=== PATIENT | female | born 1995 | race Caucasian/White ===

== ENCOUNTER 2017-01-02 17:55 | Emergency (ER) | payer SELFPAY ==
--- NOTE | 2017-01-02 19:46 | DIAGNOSTIC IMAGING REPORT ---
PROCEDURE: XR CHEST 2 VIEW INDICATION: RUQ ABD PAIN, initial encounter TECHNIQUE: PA and lateral view. COMPARISON: None. FINDINGS: Lungs are clear. Cardiovascular structures are normal. Bony thorax is unremarkable. IMPRESSION: 1. Negative chest.
--- NOTE | 2017-01-02 19:54 | DIAGNOSTIC IMAGING REPORT ---
PROCEDURE: US ABDOMEN ULTRASOUND-LIMITED INDICATION: RUQ PAIN TECHNIQUE: Rodriguez scale and color Doppler sonographic images of the abdomen were obtained. COMPARISON: None. FINDINGS: Normal gallbladder and CBD (0.9 mm). Negative Longoria's sign. Liver measures 17.8 cm with normal appearance. Normal pancreas as visualized. Aorta and IVC are patent. Normal hepatopetal flow. Normal right kidney measures 10.6 cm. IMPRESSION: 1. Negative right upper quadrant ultrasound
--- NOTE | 2017-01-02 21:28 | DIAGNOSTIC IMAGING REPORT ---
PROCEDURE: CTA THORAX WITH CONTRAST INDICATION: Right-sided chest pain, initial encounter TECHNIQUE: 64 ml of Isovue 370 was injected intravenously and axial images were obtained of the entire thorax with 3D sagittal and coronal MIP reconstructions. COMPARISON: Chest x-ray 01/02/2017 FINDINGS: No evidence of pulmonary emboli. Normal thoracic aorta without dissection or aneurysm. Lungs are clear. Mild bilateral hilar adenopathy. No effusion. Heart size is normal. Visualized upper abdomen is unremarkable. No suspicious osseous lesions. IMPRESSION: 1. No evidence of pulmonary emboli 2. Mild bilateral hilar adenopathy 3. Results discussed with Ochoa Nguyen.
--- NOTE | 2017-01-02 21:31 | ED NURSING NOTES ---
Clinical Report - Nurses [facility] [address] [place] [address] 01/02/2017 17:57 Patient: AMANDA AVALOS TRIAGE Triage time 18:Jan 02 2017. Acuity: LEVEL 3. Chief Complaint: ABDOMINAL PAIN, NAUSEA and DIARRHEA. Alert. No acute distress. --18:07 Leia Lazaro R.N. 18:02 01/02/17. BP: 145/90. HR: 115. RR: 20. O2 saturation: 100%. Temp: 98.2 F. Pain level now: 03/12. --18:07 Leia Lazaro R.N. Weight: 72.5 kg estimated. Height/Length: 67 inches Estimated. BMI: 25.1. --21:53 Keila Sheikh. Medications None. --18:03 Leia Lazaro R.N. Allergies No Known Drug Allergy. --18:03 Leia Lazaro R.N. History Arrived by private vehicle. Historian: patient. Accompanied by friend. Onset. (about 1 weeks ago). PAST MEDICAL HX: Immunizations: up-to-date. Last normal menstrual period now. No contraception. SOCIAL HX: Current every day heavy tobacco smoker (cigarette)- less than 1 pack per day. Occasional alcohol use. History of drug use: marijuana. Recently used drugs today. Recent travel in the last two (2) weeks. No infectious disease exposure. FALL RISK ASSESSMENT: Fall risk assessment completed. No fall risk identified. NUTRITIONAL RISK ASSESSMENT: The nutritional risk assessment revealed no deficiencies. FUNCTIONAL ASSESSMENT: Functional assessment: no impairments noted. LEARNING NEEDS ASSESSMENT: The learning needs assessment revealed no barriers. ABUSE ASSESSMENT: Abuse assessment: The patient was asked "Do you feel safe in your home?". SKIN INTEGRITY ASSESSMENT: Skin integrity risk assessment completed. No skin integrity risk identified. --18:07 Leia Lazaro R.N. ADDITIONAL SURGERIES: Dental Surgery. Tonsillectomy. --18:04 Leia Lazaro R.N. Interventions ID band on patient. To room. --18:07 Leia Lazaro R.N. PHYSICAL ASSESSMENT GENERAL / NEURO / PSYCH: Alert. Oriented X 4. Appears in pain. RESPIRATORY: Respirations not labored. CVS: Capillary refill less than 2 seconds. GI / : The patient has had nausea. Abdominal tenderness. SKIN: Skin is warm and dry. --18:07 Leia Lazaro R.N. NURSING PROGRESS NOTES Patient gowned. Head of bed elevated. Two patient identifiers checked. Call light placed in reach. Side rails up x 1. Bed placed in lowest position. Brakes of bed on. Patient ready for evaluation- chart flagged. --18:08 Leia Lazaro R.N. 19:01 01/02/2017 Site #1 started via IV in the left antecubital space with an 20g angiocath; one attempt. Blood drawn: rainbow set. Labeled in the presence of the patient and sent to the lab. Saline lock flushed with 10 mL saline. --19:11 Leia Lazaro R.N. 19:06 01/02/2017 Zofran (Ondansetron HCl) IVP 8 mg given over 2 minute(s) via site #1. Allergies verified and confirmed 5 rights. IV patency established. IV site checked: no pain, redness, or swelling. IV flushed thoroughly pre- and post-medication administration. --19:11 Leia Lazaro R.N. 19:06 01/02/2017 Dilaudid (HYDROmorphone HCl PF) IVP 1 mg given over 2 minute(s) via site #1. Allergies verified, confirmed 5 rights and sedative warning given to the patient. IV patency established. IV site checked: no pain, redness, or swelling. IV flushed thoroughly pre- and post-medication administration. --19:11 Leia Lazaro R.N. 19:12 01/02/2017 Started bag #1 1000 mL IV Fluids IV NS (Saline); bolus of 1000 mL over 1 hour(s) via site #1 --19:12 Leia Laazro R.N. 19:12 01/02/17. BP: 130/80. HR: 97. O2 saturation: 96%. Pain level now: 03/12. --19:13 Leia Lazaro R.N. Overall patient status is the same- she states feels the same. --20:17 Leia Lazaro R.N. 20:16 01/02/17. BP: 137/74. HR: 96. RR: 16. O2 saturation: 96%. Pain level now: 03/12. --20:17 Leia Lazaro R.N. Patient returned from CT. (:Jan 02 2017). --21:17 Leia Lazaro R.N. 21:51 01/02/2017 Site #1 removed upon discharge. Catheter intact. Pressure dressing applied. --21:51 Keila Sheikh 21:01/02/2017 IV Saline Lock Drip IV Discontinued: bag #1. Total amount infused: 0 mL. --21:51 Keila Sheikh 21:01/02/2017 IV Fluids IV NS Discontinued: bag #1 infused upon discharge. Total amount infused: 1000 mL. IV patency established. IV site checked: no pain, redness, or swelling. IV flushed thoroughly. --21:51 Keila Sheikh. DISPOSITION / DISCHARGE :01/02/17. Departure time: Jan 02 2017. Condition at departure: improved. The goals identified in the patient's plan of care were met. No learning barriers present. Discharge instructions provided and reviewed with the patient. Reviewed warnings (Patient verbalized awareness of warning s/sx listed in dc paperwork.). Reviewed medication(s) side effects, precautions, dosing and course information. Prescription(s) given to the patient (Zotaco, norco). Treatments reviewed. Reviewed referral to a primary care physician for followup. Patient verbalized understanding. Written instructions provided in Barbadian. The patient was discharged by the physician. She was discharged home and accompanied by merchant patroller. She left the Emergency Department ambulatory and via private vehicle. Assembler Tubing driving. FALL RISK ASSESSMENT: Fall risk assessment completed. No fall risk identified. --21:53 Keila Sheikh 21:51 01/02/17. BP: 123/69. HR: 97. RR: 15. O2 saturation: 98% on room air. Temp: 98.8 F (oral). Pain level now: 04/12. --21:53 Keila Sheikh. Locked/Released at 01/06/2017 11:19 by Leia Lazaro R.N.
--- NOTE | 2017-01-02 21:31 | ED CLINICAL REPORT ---
Clinical Report - Physicians/Mid Levels [facility] [address] [place] [address] 01/02/2017 17:57 [id number] Time Seen: 18:01 Jan 02 2017. Arrived- By private vehicle. Historian- patient. HISTORY OF PRESENT ILLNESS Chief Complaint: ABDOMINAL PAIN. At its maximum, severity described as moderate. When seen in the E.D., severity described as moderate. Modifying factors- worsened by movement and deep breaths. Not relieved by anything. It is described as "pain" and stabbing and it is described as located in the right flank and the right upper quadrant and radiating to the upper back. This started about 1 weeks ago; Patient says for about the last week she's been getting intermittent pain in her right upper abdomen. She says the pain seems to come and go. She is not sure if it gets worse with meals. She's been traveling by car around the [place] but denies any prolonged immobilization. No hemoptysis, sudden onset shortness of breath, or he'll lateral leg swelling. Her sister has a history of gallbladder problems with the first episode at 12 years old. No fevers or chills. The patient has had nausea and loss of appetite. No vomiting or diarrhea. The patient has had recent travel by car in the last two (2) weeks- [facility]. Similar symptoms previously: Recent medical care: Not recently seen/assessed. REVIEW OF SYSTEMS No black stools, hematemesis, difficulty with urination, pain with urination or urinary frequency. No bloody stools, fever, headache, difficulty breathing or cough. No skin rash, chills, ear pain, epistaxis or sore throat. The patient has had nasal congestion, anorexia and sinus pain but not had weight loss. She has had mild, pleuritic, well localized right-sided chest pain described as intermittent. No similar symptoms previously. All systems otherwise negative, except as recorded above. PAST HISTORY See nurses notes. No history of peptic ulcer. Has not had urinary calculi. No history of heart disease, lung disease or diabetes mellitus. SOCIAL HISTORY Smoker- current status unknown. Alcohol use. History of drug use. FAMILY HISTORY History of gall bladder problems in first-degree relative (sibling). ADDITIONAL NOTES The nursing notes have been reviewed. PHYSICAL EXAM Appearance: Alert. Oriented X3. No acute distress. Eyes: Pupils equal, round and reactive to light. Eyes normal inspection. ENT: Nose normal. Pharynx normal. Neck: Normal inspection. Neck supple. No JVD or lymphadenopathy. CVS: Tachycardia. Heart sounds normal. Rhythm normal. Respiratory: No respiratory distress. Breath sounds normal. Chest nontender. No decreased air movement. Abdomen: Soft. Severe tenderness in the right upper quadrant with guarding present. Positive Longoria's sign. No rebound tenderness. No organomegaly. No mass. No distention. Back: Normal inspection. No CVA tenderness. Skin: Skin warm and dry. Normal skin color. No rash. Normal skin turgor. Extremities: Extremities exhibit normal ROM. No lower extremity edema. Neuro: Oriented X 3. No motor deficit. No sensory deficit. LABS, X-RAYS, AND EKG Chest X-ray: Normal Chest X-Ray. Chest CT: Lungs normal. Great vessels normal. No infiltrate. Chest CT performed with contrast. The study was interpreted by the radiologist. Laboratory Tests: UA-Culture if indicated: (PREMA: 01/02/2017 18:00) ( MsgRcvd 01/02/2017 19:04) Final results Test Result Flag Units (Reference) URINE COLOR YELLOW URINE APPEARANCE CLOUDY URINE GLUCOSE NEGATIVE (NEGATIVE) URINE BILIRUBIN NEGATIVE (NEGATIVE) URINE KETONE NEGATIVE (NEGATIVE) URINE SPECIFIC GRAVITY 1.020 (1.010-1.030) URINE PH 7.5 (5.0-8.0) URINE PROTEIN NEGATIVE (NEGATIVE) URINE UROBILINOGEN 0.2 EU/dL (0.2-1.0) URINE NITRITE NEGATIVE (NEGATIVE) URINE BLOOD TRACE-INTACT (NEGATIVE) URINE LEUK ESTERASE NEGATIVE (NEGATIVE) URINE RBC 1-3 rbc/hpf (0-1) URINE WBC 1-3 wbc/hpf (0-1) URINE EPITHELIAL CELLS 1-3 EPI/hpf (0-5) URINE BACTERIA TRACE (<1+) (NONE SEEN) URINE COMMENT CULT NOT INDICATED 2+ AMORPHOUS URATESURINE CULTURES ARE SET-UP BASED ON THE FOLLOWING CRITERIA:POSITIVE NITRITEPOSITIVE LEUKOCYTE ESTERASEGREATER THAN 10 WHITE BLOOD CELLSMODERATE (2+) OR GREATER BACTERIA Urine: (PREMA: 01/02/2017 18:00) ( [facility] 01/02/2017 18:57) Final results Test Result Flag Units (Reference) URINE NEGATIVE CBC w Diff: (PREMA: 01/02/2017 19:10) ( [facility] 01/02/2017 19:32) Final results Test Result Flag Units (Reference) WHITE BLOOD COUNT 12.7 H K/uL (4.5-11.5) RED BLOOD COUNT 4.46 M/uL (4.00-5.20) HEMOGLOBIN 13.9 gm/dL (12.0-16.0) HEMATOCRIT 41.3 % (36.0-46.0) MEAN CELL VOLUME 93 fL (80-100) MEAN CORPUSCULAR HGB 31 pg (26-34) MEAN CORPUSCULAR HGB CONC 34 g/dL (31-37) RED CELL DISTRIBUTION WIDTH 12.7 % (11.6-14.8) PLATELET COUNT 281 K/uL (150-400) NEUTROPHIL % 80.2 H % (50-75) LYMPH % 11.6 L % (25-40) MONO % 7.4 % (3-14) EOSINOPHIL % 0.5 % (0-4) BASOPHIL % 0.3 % (0-2) [id number]: (PREMA: 01/02/2017 19:10) ( [facility] 01/02/2017 19:42) Final results Test Result Flag Units (Reference) D-DIMER QUANTITATIVE 2.25 H ug/mLFEU (0.27-0.52) The primary value of this quantitative assay relates toits negative predictive value (i.e. exclusion) of pulmonaryembolism/deep vein thrombosis/DIC.Elevated levels of d-dimer may also occur with:, age, cancer, inflammation, liver disease,post-op, infection, hematoma, coronary disease, peripheralarteriopathy, bleeding disorders and thrombolytic treatment.Results should be correlated with other clinical andradiological data.Testing Methodology: Latex Immunoassay CMP: (PREMA: 01/02/2017 19:10) ( MsgRcvd 01/02/2017 19:41) Final results Test Result Flag Units (Reference) GLUCOSE 96 mg/dL (70-110) BUN 10 mg/dL (7-18) CREATININE 0.7 mg/dL (0.6-1.3) Estimated GFR >60 mL/min Estimated GFR- >60 mL/min Note: Persistent reduction over 3 months in eGFR<60 mL/min/1.73 m2 defines CKD. Patients with eGFR values>=60 mL/min/1.73 m2 may also have CKD if evidence ofpersistent proteinuria. Additional information may be foundat www.[email or web address].org. SODIUM 141 mmol/L (136-145) POTASSIUM 3.7 mmol/L (3.5-5.1) CHLORIDE 102 mmol/L (98-107) CARBON DIOXIDE 27 mmol/L (21-32) CALCIUM 8.8 mg/dL (8.5-10.1) TOTAL PROTEIN 7.6 g/dL (6.4-8.2) ALBUMIN 3.7 g/dL (3.3-5.0) BILIRUBIN, TOTAL 0.5 mg/dL (0.0-1.0) ALKALINE PHOSPHATASE 67 U/L (46-116) AST (SGOT) 23 U/L (15-37) ALT (SGPT) 26 U/L (12-78) LIPASE 120 U/L (73-393) . PROGRESS AND PROCEDURES Course of Care: 18:27 01/02/17. Patient stable. Right upper quadrant abdominal pain underneath her rib cage. I think herpleuritic pain is from ultrasound, not the lung area. However, she is tachycardic and has been traveling so will add a d-dimer although her intermittent symptoms don't really suggest pulmonary embolism. We'll check labs and make comfortable and get a ultrasound of the Hepatobiliary area. 20:23 01/02/17. Unfortunately, her d-dimer is elevated. The remainder of her lab is normal. As cannot completely rule out PE will get a CTA. discussed with the patient. 21:29 01/02/17. CTA chest negative for PE. She is feeling much better. We'll discharge patient home. Discussed possibility of biliary colic and need for clear liquid diet in addition to her pain/nausea control at home. Follow up with her primary care provider in the next 72 hours for reevaluation. Sooner here if fever, worsening pain or vomiting. Disposition: Discharged in good and improved condition. CLINICAL IMPRESSION Acute right upper quadrant abdominal pain of unknown cause. Possible biliary colic. INSTRUCTIONS Rest at home for two days until better. Drink plenty of fluids. Take clear liquids only for the next 48 hours until better and re-evaluated. Advance diet as tolerated. Warnings: SEDATIVE MEDICATION: You were given sedative medication during your visit. Do not drive or operate dangerous machinery. CONTROLLED SUBSTANCE WARNINGS. GENERAL WARNINGS: Return or contact your physician immediately if your condition worsens or changes unexpectedly, if not improving as expected, or if other problems arise. SPECIFICALLY, return if you develop fever, the inability to keep fluids down, blood in diarrhea or fainting. Prescription Medications: Terrell 5 mg / 325 mg tablets: take 1 to 2 orally every 6 hours as needed for pain. Dispense five (5). No refill. Substitution is permissible. Zofran ODT 8 mg: take 1 orally every 8 hours as needed for nausea and vomiting. Dispense ten (10). No refill. Substitution is permissible. Follow-up: Follow up with your doctor in three days if not well. Understanding of the discharge instructions verbalized by patient. (Electronically signed by Ochoa Nguyen, 01/02/2017 23:13)
--- NOTE | 2017-01-02 21:31 | ED CLINICAL REPORT ---
Clinical Report - Physicians/Mid Levels [facility] [address] [place] [address] 01/02/2017 17:57 [id number] Time Seen: 18:01 Jan 02 2017. Arrived- By private vehicle. Historian- patient. HISTORY OF PRESENT ILLNESS Chief Complaint: ABDOMINAL PAIN. At its maximum, severity described as moderate. When seen in the E.D., severity described as moderate. Modifying factors- worsened by movement and deep breaths. Not relieved by anything. It is described as "pain" and stabbing and it is described as located in the right flank and the right upper quadrant and radiating to the upper back. This started about 1 weeks ago; Patient says for about the last week she's been getting intermittent pain in her right upper abdomen. She says the pain seems to come and go. She is not sure if it gets worse with meals. She's been traveling by car around the [place] but denies any prolonged immobilization. No hemoptysis, sudden onset shortness of breath, or he'll lateral leg swelling. Her sister has a history of gallbladder problems with the first episode at 12 years old. No fevers or chills. The patient has had nausea and loss of appetite. No vomiting or diarrhea. The patient has had recent travel by car in the last two (2) weeks- [facility]. Similar symptoms previously: Recent medical care: Not recently seen/assessed. REVIEW OF SYSTEMS No black stools, hematemesis, difficulty with urination, pain with urination or urinary frequency. No bloody stools, fever, headache, difficulty breathing or cough. No skin rash, chills, ear pain, epistaxis or sore throat. The patient has had nasal congestion, anorexia and sinus pain but not had weight loss. She has had mild, pleuritic, well localized right-sided chest pain described as intermittent. No similar symptoms previously. All systems otherwise negative, except as recorded above. PAST HISTORY See nurses notes. No history of peptic ulcer. Has not had urinary calculi. No history of heart disease, lung disease or diabetes mellitus. SOCIAL HISTORY Smoker- current status unknown. Alcohol use. History of drug use. FAMILY HISTORY History of gall bladder problems in first-degree relative (sibling). ADDITIONAL NOTES The nursing notes have been reviewed. PHYSICAL EXAM Appearance: Alert. Oriented X3. No acute distress. Eyes: Pupils equal, round and reactive to light. Eyes normal inspection. ENT: Nose normal. Pharynx normal. Neck: Normal inspection. Neck supple. No JVD or lymphadenopathy. CVS: Tachycardia. Heart sounds normal. Rhythm normal. Respiratory: No respiratory distress. Breath sounds normal. Chest nontender. No decreased air movement. Abdomen: Soft. Severe tenderness in the right upper quadrant with guarding present. Positive Longoria's sign. No rebound tenderness. No organomegaly. No mass. No distention. Back: Normal inspection. No CVA tenderness. Skin: Skin warm and dry. Normal skin color. No rash. Normal skin turgor. Extremities: Extremities exhibit normal ROM. No lower extremity edema. Neuro: Oriented X 3. No motor deficit. No sensory deficit. LABS, X-RAYS, AND EKG Chest X-ray: Normal Chest X-Ray. Chest CT: Lungs normal. Great vessels normal. No infiltrate. Chest CT performed with contrast. The study was interpreted by the radiologist. Laboratory Tests: UA-Culture if indicated: (PREMA: 01/02/2017 18:00) ( MsgRcvd 01/02/2017 19:04) Final results Test Result Flag Units (Reference) URINE COLOR YELLOW URINE APPEARANCE CLOUDY URINE GLUCOSE NEGATIVE (NEGATIVE) URINE BILIRUBIN NEGATIVE (NEGATIVE) URINE KETONE NEGATIVE (NEGATIVE) URINE SPECIFIC GRAVITY 1.020 (1.010-1.030) URINE PH 7.5 (5.0-8.0) URINE PROTEIN NEGATIVE (NEGATIVE) URINE UROBILINOGEN 0.2 EU/dL (0.2-1.0) URINE NITRITE NEGATIVE (NEGATIVE) URINE BLOOD TRACE-INTACT (NEGATIVE) URINE LEUK ESTERASE NEGATIVE (NEGATIVE) URINE RBC 1-3 rbc/hpf (0-1) URINE WBC 1-3 wbc/hpf (0-1) URINE EPITHELIAL CELLS 1-3 EPI/hpf (0-5) URINE BACTERIA TRACE (<1+) (NONE SEEN) URINE COMMENT CULT NOT INDICATED 2+ AMORPHOUS URATESURINE CULTURES ARE SET-UP BASED ON THE FOLLOWING CRITERIA:POSITIVE NITRITEPOSITIVE LEUKOCYTE ESTERASEGREATER THAN 10 WHITE BLOOD CELLSMODERATE (2+) OR GREATER BACTERIA Urine: (PREMA: 01/02/2017 18:00) ( [facility] [place] 18:57[place] Final results Test Result Flag Units (Reference) URINE NEGATIVE CBC w Diff: (PREMA: 01/02/2017 19:10) ( [facility] [place]/02/[place] 19:32) Final results Test Result Flag Units (Reference) WHITE BLOOD COUNT 12.7 H K/uL (4.5-11.5) RED BLOOD COUNT 4.46 M/uL (4.00-5.20) HEMOGLOBIN 13.9 gm/dL (12.0-16.0) HEMATOCRIT 41.3 % (36.0-46.0) MEAN CELL VOLUME 93 fL (80-100) MEAN CORPUSCULAR HGB 31 pg (26-34) MEAN CORPUSCULAR HGB CONC 34 g/dL (31-37) RED CELL DISTRIBUTION WIDTH 12.7 % (11.6-14.8) PLATELET COUNT 281 K/uL (150-400) NEUTROPHIL % 80.2 H % (50-75) LYMPH % 11.6 L % (25-40) MONO % 7.4 % (3-14) EOSINOPHIL % 0.5 % (0-4) BASOPHIL % 0.3 % (0-2) [id number]: (PREMA: 01/02/2017 19:10) ( [facility] [place]/02[place] 19:42) Final results Test Result Flag Units (Reference) D-DIMER QUANTITATIVE 2.25 H ug/mLFEU (0.27-0.52) The primary value of this quantitative assay relates toits negative predictive value (i.e. exclusion) of pulmonaryembolism/deep vein thrombosis/DIC.Elevated levels of d-dimer may also occur with:, age, cancer, inflammation, liver disease,post-op, infection, hematoma, coronary disease, peripheralarteriopathy, bleeding disorders and thrombolytic treatment.Results should be correlated with other clinical andradiological data.Testing Methodology: Latex Immunoassay CMP: (PREMA: 01/02/2017 19:10) ( MsgRcvd 01/02/2017 19:41) Final results Test Result Flag Units (Reference) GLUCOSE 96 mg/dL (70-110) BUN 10 mg/dL (7-18) CREATININE 0.7 mg/dL (0.6-1.3) Estimated GFR >60 mL/min Estimated GFR- >60 mL/min Note: Persistent reduction over 3 months in eGFR<60 mL/min/1.73 m2 defines CKD. Patients with eGFR values>=60 mL/min/1.73 m2 may also have CKD if evidence ofpersistent proteinuria. Additional information may be foundat www.kidney.org. SODIUM 141 mmol/L (136-145) POTASSIUM 3.7 mmol/L (3.5-5.1) CHLORIDE 102 mmol/L (98-107) CARBON DIOXIDE 27 mmol/L (21-32) CALCIUM 8.8 mg/dL (8.5-10.1) TOTAL PROTEIN 7.6 g/dL (6.4-8.2) ALBUMIN 3.7 g/dL (3.3-5.0) BILIRUBIN, TOTAL 0.5 mg/dL (0.0-1.0) ALKALINE PHOSPHATASE 67 U/L (46-116) AST (SGOT) 23 U/L (15-37) ALT (SGPT) 26 U/L (12-78) LIPASE 120 U/L (73-393) . PROGRESS AND PROCEDURES Course of Care: 18:27 01/02/17. Patient stable. Right upper quadrant abdominal pain underneath her rib cage. I think herpleuritic pain is from ultrasound, not the lung area. However, she is tachycardic and has been traveling so will add a d-dimer although her intermittent symptoms don't really suggest pulmonary embolism. We'll check labs and make comfortable and get a ultrasound of the Hepatobiliary area. 20:23 01/02/17. Unfortunately, her d-dimer is elevated. The remainder of her lab is normal. As cannot completely rule out PE will get a CTA. discussed with the patient. 21:29 01/02/17. CTA chest negative for PE. She is feeling much better. We'll discharge patient home. Discussed possibility of biliary colic and need for clear liquid diet in addition to her pain/nausea control at home. Follow up with her primary care provider in the next 72 hours for reevaluation. Sooner here if fever, worsening pain or vomiting. Disposition: Discharged in good and improved condition. CLINICAL IMPRESSION Acute right upper quadrant abdominal pain of unknown cause. Possible biliary colic. INSTRUCTIONS Rest at home for two days until better. Drink plenty of fluids. Take clear liquids only for the next 48 hours until better and re-evaluated. Advance diet as tolerated. Warnings: SEDATIVE MEDICATION: You were given sedative medication during your visit. Do not drive or operate dangerous machinery. CONTROLLED SUBSTANCE WARNINGS. GENERAL WARNINGS: Return or contact your physician immediately if your condition worsens or changes unexpectedly, if not improving as expected, or if other problems arise. SPECIFICALLY, return if you develop fever, the inability to keep fluids down, blood in diarrhea or fainting. Prescription Medications: [place] 5 mg / 325 mg tablets: take 1 to 2 orally every 6 hours as needed for pain. Dispense five (5). No refill. Substitution is permissible. Zofran ODT 8 mg: take 1 orally every 8 hours as needed for nausea and vomiting. Dispense ten (10). No refill. Substitution is permissible. Follow-up: Follow up with your doctor in three days if not well. Understanding of the discharge instructions verbalized by patient. (Electronically signed by Ochoa Nguyen, 01/02/2017 23:13)
--- NOTE | 2017-01-02 21:31 | ED ORDER SUMMARY ---
..... Patient: AMANDA AVALOS OrderSheet [facility] VisitID: [id number] [place] [address] 21y, F Registration Date/Time: 01/02/2017 ORDER SHEET Weight: 72.5 kg (estimated) Allergies: No Known Drug Allergy GENERAL ORDERS: Chest 2V Urgent (18:19 01/02/2017 JCoates) (18:31 MCampbell) US Abdomen Complete (No) Urgent (18:20 01/02/2017 JCoates) (18:24 JCoates) (Cancelled: Wrong Order18:24 JCoates) CBC w Diff Urgent (18:21 01/02/2017 JCoates) (Ack 18:43 RKaruga) (19:12 KKnebel R.N.) CMP Urgent (18:21 01/02/2017 JCoates) (Ack 18:43 RKaruga) (19:12 KKnebel R.N.) Lipase Urgent (18:21 01/02/2017 JCoates) (Ack 18:43 RKaruga) (19:12 KKnebel R.N.) Urine Urgent (18:21 01/02/2017 JCoates) (Ack 18:43 RKaruga) (19:12 KKnebel R.N.) UA-Culture if indicated Urgent (18:21 01/02/2017 JCoates) (Ack 18:43 RKaruga) (19:12 KKnebel R.N.) D-Dimer Urgent (18:21 01/02/2017 JCoates) (Ack 18:43 RKaruga) (19:12 KKnebel R.N.) US Abdomen Limited (No) Urgent (18:25 01/02/2017 JCoates) (Ack 18:43 RKaruga) (19:01 MCampbell) CTA Thorax w Cont (No) (N/A) Urgent (20:24 01/02/2017 JCoates) (Ack 20:29 AMcQuoid ER Tech1) (21:23 MCampbell) MEDICATION ORDERS: IV FLUIDS: IV NS : initial bolus 1000 mL (1000 mL/hr), then 1000 mL/hr for X1 (NOW) (18:20 01/02/2017 JCoates) (Ack 18:40 RCollier R.N.) (19:12 KKnebel R.N.) Zofran IV 8 mg (NOW) (18:21 01/02/2017 JCoates) (Ack 18:40 RCollier R.N.) (19:11 KKnebel R.N.) Dilaudid IV 1 mg (NOW) (18:21 01/02/2017 JCoates) (Ack 18:40 RCollier R.N.) (19:11 KKnebel R.N.) IV Saline Lock (18:21 01/02/2017 JCoates) (Ack 18:40 RCollier R.N.) (21:51 [facility]) ORDER SHEET NOTES: [Electronically signed by Ochoa Nguyen (23:13 01/02/2017)] [Electronically signed by Leia Lazaro R.N. (11:19 01/06/2017)] [Electronically locked/signed by Leia Lazaro R.N. (11:19 01/06/2017)]
--- NOTE | 2017-01-02 21:31 | ED ORDER SUMMARY ---
..... Patient: AMANDA AVALOS OrderSheet [facility] VisitID: [id number] [place] [address] 21y, F Registration Date/Time: 01/02/2017 ORDER SHEET Weight: 72.5 kg (estimated) Allergies: No Known Drug Allergy GENERAL ORDERS: Chest 2V Urgent (18:19 01/02/2017 JCoates) (18:31 MCampbell) US Abdomen Complete (No) Urgent (18:20 01/02/2017 JCoates) (18:24 JCoates) (Cancelled: Wrong Order18:24 JCoates) CBC w Diff Urgent (18:21 01/02/2017 JCoates) (Ack 18:43 RKaruga) (19:12 KKnebel R.N.) CMP Urgent (18:21 01/02/2017 JCoates) (Ack 18:43 RKaruga) (19:12 KKnebel R.N.) Lipase Urgent (18:21 01/02/2017 JCoates) (Ack 18:43 RKaruga) (19:12 KKnebel R.N.) Urine Urgent (18:21 01/02/2017 JCoates) (Ack 18:43 RKaruga) (19:12 KKnebel R.N.) UA-Culture if indicated Urgent (18:21 01/02/2017 JCoates) (Ack 18:43 RKaruga) (19:12 KKnebel R.N.) D-Dimer Urgent (18:21 01/02/2017 JCoates) (Ack 18:43 RKaruga) (19:12 KKnebel R.N.) US Abdomen Limited (No) Urgent (18:25 01/02/2017 JCoates) (Ack 18:43 RKaruga) (19:01 MCampbell) CTA Thorax w Cont (No) (N/A) Urgent (20:24 01/02/2017 JCoates) (Ack 20:29 AMcQuoid ER Tech1) (21:23 MCampbell) MEDICATION ORDERS: IV FLUIDS: IV NS : initial bolus 1000 mL (1000 mL/hr), then 1000 mL/hr for X1 (NOW) (18:20 01/02/2017 JCoates) (Ack 18:40 RCollier R.N.) (19:12 KKnebel R.N.) Zofran IV 8 mg (NOW) (18:21 01/02/2017 JCoates) (Ack 18:40 RCollier R.N.) (19:11 KKnebel R.N.) Dilaudid IV 1 mg (NOW) (18:21 01/02/2017 JCoates) (Ack 18:40 RCollier R.N.) (19:11 KKnebel R.N.) IV Saline Lock (18:21 01/02/2017 JCoates) (Ack 18:40 RCollier R.N.) (21:51 [facility]) ORDER SHEET NOTES: [Electronically signed by Ochoa Nguyen (23:13 01/02/2017)] [Electronically signed by Leia Lazaro R.N. (11:19 01/06/2017)] [Electronically locked/signed by Leia Lazaro R.N. (11:19 01/06/2017)]
--- NOTE | 2017-01-06 11:19 | ED MED RECONCILIATION SUMMARY ---
Patient: AMANDA AVALOS Medication Reconciliation Report [facility] VisitID: [id number] [address] [place] [address] 21y, F Registration Date/Time: 01/02/2017 Weight: 72.5 kg Height/Length: 67 in. BMI: 25.1 ALLERGIES: No Known Drug Allergy The patient's Home Medications are listed below: NONE. The source(s) of the original Home Medication information: Not obtained. The following Medications were given to the patient in the Emergency Department: Zofran [IVP] IVP 8 mg, administered: 01/02/2017 7:06:00 PM Dilaudid [IVP] IVP 1 mg, administered: 01/02/2017 7:06:00 PM IV NS IV Fluids bolus 1000 mL over 1 hour(s), administered: 01/02/2017 7:12:00 PM The following Medications were prescribed to the patient: [place] 5 mg / 325 mg tablets: take 1 to 2 orally every 6 hours as needed for pain. Dispense five (5). No refill. Substitution is permissible. -- Ochoa Nguyen Zofran ODT 8 mg: take 1 orally every 8 hours as needed for nausea and vomiting. Dispense ten (10). No refill. Substitution is permissible. -- Ochoa Nguyen
--- NOTE | 2017-01-06 11:19 | ED MED RECONCILIATION SUMMARY ---
Patient: AMANDA AVALOS Medication Reconciliation Report [facility] VisitID: [id number] [address] [place] [address] 21y, F Registration Date/Time: 01/02/2017 Weight: 72.5 kg Height/Length: 67 in. BMI: 25.1 ALLERGIES: No Known Drug Allergy The patient's Home Medications are listed below: NONE. The source(s) of the original Home Medication information: Not obtained. The following Medications were given to the patient in the Emergency Department: Zofran [IVP] IVP 8 mg, administered: 01/02/2017 7:06:00 PM Dilaudid [IVP] IVP 1 mg, administered: 01/02/2017 7:06:00 PM IV NS IV Fluids bolus 1000 mL over 1 hour(s), administered: 01/02/2017 7:12:00 PM The following Medications were prescribed to the patient: [place] 5 mg / 325 mg tablets: take 1 to 2 orally every 6 hours as needed for pain. Dispense five (5). No refill. Substitution is permissible. -- Ochoa Nguyen Zofran ODT 8 mg: take 1 orally every 8 hours as needed for nausea and vomiting. Dispense ten (10). No refill. Substitution is permissible. -- Ochoa Nguyen
--- NOTE | 2017-01-06 11:19 | ED MAR SUMMARY ---
..... Medication Administration Record [facility] [address] [place] [address] Patient: AMANDA AVALOS Visit ID: [id number] 21y, F Weight: 72.5 kg Height/Length: 67 in BMI: 25.1 ALLERGIES: No Known Drug Allergy Given 19:06 01/02/2017 Leia Lazaro R.N. Medication Administered: ZOFRAN [IVP] (ONDANSETRON HCL), Dose: 8 mg IVP over 2 minute(s), Site: #1 left AC. Medication Ordered: Zofran IV 8 mg (NOW). Given 19:06 01/02/2017 Leia Lazaro R.N. Medication Administered: DILAUDID [IVP] (HYDROMORPHONE HCL PF), Dose: 1 mg IVP over 2 minute(s), Site: #1 left AC. Medication Ordered: Dilaudid IV 1 mg (NOW). Start 19:12 01/02/2017 Leia Lazaro RAlfred, Stop 21:51 01/02/2017 Keila Sheikh, Medication Administered: IV NS (SALINE), Dose: IV Fluids, Bolus: 1000 mL over 1 hour(s), Dispensed: 1000 mL bag, Site: #1 left AC. Medication Ordered: IV NS : initial bolus 1000 mL (1000 mL/hr), then 1000 mL/hr for X1 (NOW).
--- NOTE | 2017-01-06 11:19 | ED DISCHARGE INSTRUCTIONS ---
Patient: AMANDA AVALOS General Instructions [facility] VisitID: [id number] [place] [address] 21y, F Registration Date/Time: 01/02/2017 Acute right upper quadrant abdominal pain of unknown cause. INSTRUCTIONS Rest at home for two days until better. Drink plenty of fluids. Take clear liquids only for the next 48 hours until better and re-evaluated. Advance diet as tolerated. Warnings: SEDATIVE MEDICATION: You were given sedative medication during your visit. Do not drive or operate dangerous machinery. CONTROLLED SUBSTANCE WARNINGS. GENERAL WARNINGS: Return or contact your physician immediately if your condition worsens or changes unexpectedly, if not improving as expected, or if other problems arise. SPECIFICALLY, return if you develop fever, the inability to keep fluids down, blood in diarrhea or fainting. Prescription Medications: [place] 5 mg / 325 mg tablets: take 1 to 2 orally every 6 hours as needed for pain. Dispense five (5). No refill. Substitution is permissible. Zofran ODT 8 mg: take 1 orally every 8 hours as needed for nausea and vomiting. Dispense ten (10). No refill. Substitution is permissible. Follow-up: Follow up with your doctor in three days if not well. Understanding of the discharge instructions verbalized by patient. ADDITIONAL INFORMATION Abdominal Pain, Unknown Cause (Female) The exact cause of your abdominal (stomach) pain is not certain. This does not mean that this is something to worry about, or the right tests were not done. Everyone likes to know the exact cause of the problem, but sometimes with abdominal pain, there is no clear-cut cause, and this could be a good thing. The good news is that your symptoms can be treated, and you will feel better. Your condition does not seem serious now; however, sometimes the signs of a serious problem may take more time to appear. For this reason,it is important for you to watch for any new symptoms, problems,or worsening of your condition. Over the next few days, the abdominal pain may come and go, or be continuous. Other common symptoms can include nausea and vomiting. Sometimes it can be difficult to tell if you feel nauseous, you may just feel bad and not associate that feeling with nausea. Constipation, diarrhea, and a fever may go along with the pain. The pain may continue even if treated correctly over the following days. Depending on how things go, sometimes the cause can become clear and may require further or different treatment. Additional evaluations, medications, or tests may be needed. Home care Your health care provider may prescribe medications for pain, symptoms, or an infection. Follow the health care provider's instructions for taking these medications. General care Rest until your next exam. No strenuous activities. Try to find positions that ease discomfort. A small pillow placed on the abdomen may help relieve pain. Something warm on your abdomen (such as a heating pad) may help, but be careful not to burn yourself. Diet Do not force yourself to eat, especially if having cramps, vomiting, or diarrhea. Water is important so you do not get dehydrated. Soup may also be good. Sports drinks may also help, especially if they are not too acidic. Make sure you don't drink sugary drinks as this can make things worse. Take liquids in small amounts. Do not guzzle them. Caffeine sometimes makes the pain and cramping worse. Avoid dairy products if you have vomiting or diarrhea. Don't eat large amounts at a time. Wait a few minutes between bites. Eat a diet low in fiber (called a low-residue diet). Foods allowed include refined breads, white rice, fruit and vegetable juices without pulp, tender meats. These foods will pass more easily through the intestine. Avoid whole-grain foods, whole fruits and vegetables, meats, seeds and nuts, fried or fatty foods, dairy, alcohol and spicy foods until your symptoms go away. Follow-up care Follow up with your health care provider as instructed, or if your pain does not begin to improve in the next 24 hours. When to seek medical care Seek prompt medical care if any of the following occur: Pain gets worse or moves to the right lower abdomen New or worsening vomiting or diarrhea Swelling of the abdomen Unable to pass stool for more than three days Fever of 100.4F (38C) or higher, or as directed by your healthcare provider. Blood in vomit or bowel movements (dark red or black color) Jaundice (yellow color of eyes and skin) Weakness, dizziness Chest, arm, back, neck or jaw pain Unexpected vaginal bleeding or missed period Call 911 Call emergency services if any of the following occur: Trouble breathing Confusion Fainting or loss of consciousness Rapid heart rate Seizure Possible Gallstone With Biliary Colic [Presumed] Your doctor suspects that your abdominal pain is due to spasm of the gallbladder with gallstones. The gallbladder is a small sack under the liver which stores and releases bile. Bile is a fluid that aids in the digestion of fat. A gallstone may form in this sack and block the flow of bile fluid. This can cause mild to severe cramping pain in the mid or right upper abdomen with nausea and vomiting. To be more certain of the diagnosis, you may need to have an ultrasound, CT-scan or other special test. Home Care: Rest in bed and follow a clear liquid diet until feeling better. If pain or nausea medicine was given to help with your symptoms, take these as directed. Fat in your diet makes the gallbladder contract and may cause increased pain. Therefore, avoid fat in your diet over the next two days and follow a low-fat diet after that. If you are overweight, a low fat diet will help you lose weight. Follow Up if a test was already scheduled for you, keep this appointment. Be sure you know how to prepare yourself for the test. Usually, you will be asked not to eat or drink anything for at least 8 hours before the test. Schedule an appointment with your own doctor after your test is complete to discuss the findings. Get Prompt Medical Attention if any of the following occur: Pain gets worse or moves to the right lower abdomen Repeated vomiting Swelling of the abdomen Pain lasts over 6 hours Fever of 100.4 F (38 C) or higher, or as directed by your healthcare provider Weakness, dizziness or fainting Dark urine or light colored stools Yellow color of the skin or eyes Chest, arm, back, neck or jaw pain Clear Liquid Diet Clear liquids are any liquid that you can see through as well as those that are very easy to digest. This is used while the body is recovering from irritation or infection of the stomach or intestinal tract. It may also be used before special procedures or surgery. This diet is to be used no more than three days. You may include the following items. Adults Adults should drink a total of 23 quarts of liquid per day. It may be easier to drink small frequent servings rather than a few large ones. Liquids can include: Fruit juices.Strained orange juice or lemonade (no pulp), apple, grape and cranberry juice, clear fruit drinks, sports drinks Beverages.Sport drinks, sodas, mineral water (plain or flavored), tea, black coffee, liquid gelatin (add twice the recommended amount of water) Soups.Clear broth, consomm, bouillon Desserts.Plain gelatin, popsicles, fruit juice bars Children Over 2 years old The following liquids are acceptable for children over age 2: Fruit juices.Strained orange juice or lemonade (no pulp), apple, grape and cranberry juice, clear fruit drinks Beverages. Sports drinks, sodas, mineral water (plain or flavored), tea, liquid gelatin (add twice the recommended amount of water) Soups. Clear broth, consomm, bouillon Desserts. Plain gelatin, popsicles, fruit juice bars Children under 2 years old Oral rehydration fluids such are available at drug stores and most grocery stores without a prescription. Hydrocodone Bitartrate, Acetaminophen Oral tablet What is this medicine? ACETAMINOPHEN; HYDROCODONE (a set a PORFIRIO nettie fen; manasa droe KOE done) is a pain reliever. It is used to treat mild to moderate pain. How should I use this medicine? Take this medicine by mouth. Swallow it with a full glass of water. Follow the directions on the prescription label. If the medicine upsets your stomach, take the medicine with food or milk. Do not take more than you are told to take. Talk to your hris analyst regarding the use of this medicine in children. This medicine is not approved for use in children. What side effects may I notice from receiving this medicine? Side effects that you should report to your doctor or health healthcare administrative assistant as soon as possible: allergic reactions like skin rash, itching or hives, swelling of the face, lips, or tongue breathing problems confusion feeling faint or lightheaded, falls stomach pain yellowing of the eyes or skin Side effects that usually do not require medical attention (report to your doctor or health healthcare administrative assistant if they continue or are bothersome): nausea, vomiting stomach upset What may interact with this medicine? alcohol antihistamines isoniazid medicines for depression, anxiety, or psychotic disturbances medicines for sleep muscle relaxants naltrexone narcotic medicines (opiates) for pain phenobarbital ritonavir tramadol What if I miss a dose? If you miss a dose, take it as soon as you can. If it is almost time for your next dose, take only that dose. Do not take double or extra doses. Where should I keep my medicine? Keep out of the reach of children. This medicine can be abused. Keep your medicine in a safe place to protect it from theft. Do not share this medicine with anyone. Selling or giving away this medicine is dangerous and against the law. Store at room temperature between 15 and 30 degrees C (59 and 86 degrees F). Protect from light. Keep container tightly closed. Throw away any unused medicine after the expiration date. Discard unused medicine and used packaging carefully. Pets and children can be harmed if they find used or lost packages. What should I tell my health care provider before I take this medicine? They need to know if you have any of these conditions: brain tumor Crohn's disease, inflammatory bowel disease, or ulcerative colitis drink more than 3 alcohol-containing drinks per day drug abuse or addiction head injury heart or circulation problems kidney disease or problems going to the bathroom liver disease lung disease, asthma, or breathing problems an unusual or allergic reaction to acetaminophen, hydrocodone, other opioid analgesics, other medicines, foods, dyes, or preservatives or trying to get breast-feeding What should I watch for while using this medicine? Tell your doctor or health healthcare administrative assistant if your pain does not go away, if it gets worse, or if you have new or a different type of pain. You may develop tolerance to the medicine. Tolerance means that you will need a higher dose of the medicine for pain relief. Tolerance is normal and is expected if you take the medicine for a long time. Do not suddenly stop taking your medicine because you may develop a severe reaction. Your body becomes used to the medicine. This does NOT mean you are addicted. Addiction is a behavior related to getting and using a drug for a non-medical reason. If you have pain, you have a medical reason to take pain medicine. Your doctor will tell you how much medicine to take. If your doctor wants you to stop the medicine, the dose will be slowly lowered over time to avoid any side effects. You may get drowsy or dizzy when you first start taking the medicine or change doses. Do not drive, use machinery, or do anything that may be dangerous until you know how the medicine affects you. Stand or sit up slowly. There are different types of narcotic medicines (opiates) for pain. If you take more than one type at the same time, you may have more side effects. Give your health care provider a list of all medicines you use. Your doctor will tell you how much medicine to take. Do not take more medicine than directed. Call emergency for help if you have problems breathing. The medicine will cause constipation. Try to have a bowel movement at least every 2 to 3 days. If you do not have a bowel movement for 3 days, call your doctor or health healthcare administrative assistant. Too much acetaminophen can be very dangerous. Do not take Tylenol (acetaminophen) or medicines that contain acetaminophen with this medicine. Many non-prescription medicines contain acetaminophen. Always read the labels carefully. Ondansetron Oral disintegrating tablet What is this medicine? ONDANSETRON (on RUPA se adela) is used to treat nausea and vomiting caused by chemotherapy. It is also used to prevent or treat nausea and vomiting after surgery. How should I use this medicine? These tablets are made to dissolve in the mouth. Do not try to push the tablet through the foil backing. With dry hands, peel away the foil backing and gently remove the tablet. Place the tablet in the mouth and allow it to dissolve, then swallow. While you may take these tablets with water, it is not necessary to do so. Talk to your hris analyst regarding the use of this medicine in children. Special care may be needed. What side effects may I notice from receiving this medicine? Side effects that you should report to your doctor or health healthcare administrative assistant as soon as possible: allergic reactions like skin rash, itching or hives, swelling of the face, lips, or tongue breathing problems dizziness fast or irregular heartbeat feeling faint or lightheaded, falls fever and chills swelling of the hands and feet tightness in the chest Side effects that usually do not require medical attention (report to your doctor or health healthcare administrative assistant if they continue or are bothersome): constipation or diarrhea headache What may interact with this medicine? Do not take this medicine with any of the following medications: -apomorphine -cisapride -dofetilide -dronedarone -pimozide -thioridazine -ziprasidone This medicine may also interact with the following medications: -carbamazepine -phenytoin -rifampicin -tramadol -other medicines that prolong the QT interval (cause an abnormal heart rhythm) What if I miss a dose? If you miss a dose, take it as soon as you can. If it is almost time for your next dose, take only that dose. Do not take double or extra doses. Where should I keep my medicine? Keep out of the reach of children. Store between 2 and 30 degrees C (36 and 86 degrees F). Throw away any unused medicine after the expiration date. What should I tell my health care provider before I take this medicine? They need to know if you have any of these conditions: heart disease history of irregular heartbeat liver disease low levels of magnesium or potassium in the blood an unusual or allergic reaction to ondansetron, granisetron, other medicines, foods, dyes, or preservatives or trying to get breast-feeding What should I watch for while using this medicine? Check with your doctor or health healthcare administrative assistant as soon as you can if you have any sign of an allergic reaction. You have been given the following additional information: Abdominal Pain, Unknown Cause, (Female) Biliary Colic With Gallstone (Presumed) Diet, Clear Liquid Hydrocodone Bitartrate, Acetaminophen Oral tablet Ondansetron Oral disintegrating tablet Rest at home for two days until better. (Electronically signed by Ochoa Nguyen, 01/02/2017 23:13)
--- NOTE | 2017-01-06 11:19 | ED MAR SUMMARY ---
..... Medication Administration Record [facility] [address] [place] [address] Patient: AMANDA AVALOS Visit ID: [id number] 21y, F Weight: 72.5 kg Height/Length: 67 in BMI: 25.1 ALLERGIES: No Known Drug Allergy Given 19:06 01/02/2017 Leia Lazaro R.N. Medication Administered: ZOFRAN [IVP] (ONDANSETRON HCL), Dose: 8 mg IVP over 2 minute(s), Site: #1 left AC. Medication Ordered: Zofran IV 8 mg (NOW). Given 19:06 01/02/2017 Leia Lazaro R.N. Medication Administered: DILAUDID [IVP] (HYDROMORPHONE HCL PF), Dose: 1 mg IVP over 2 minute(s), Site: #1 left AC. Medication Ordered: Dilaudid IV 1 mg (NOW). Start 19:12 01/02/2017 Leia Lazaro RAlfred, Stop 21:51 01/02/2017 Keila Sheikh, Medication Administered: IV NS (SALINE), Dose: IV Fluids, Bolus: 1000 mL over 1 hour(s), Dispensed: 1000 mL bag, Site: #1 left AC. Medication Ordered: IV NS : initial bolus 1000 mL (1000 mL/hr), then 1000 mL/hr for X1 (NOW).
== END 2017-01-02 21:54 | disposition home or self-care (01) ==
LOC: ED SRH 17:55
DX: R10.11 Right upper quadrant pain (principal)
CPT/HCPCS: 90004; 90100; 91556; 92235; 93070; 95059